=== PATIENT | female | born 1980 | race Caucasian/White ===

== ENCOUNTER 2017-08-16 22:21 | Emergency (ER) | payer MEDICAID ==
[~2017-08-16] VITALS: Ht 162.6 cm; Wt 89.5 kg
[2017-08-16 22:27] VITALS: BP 132/82
== END 2017-08-17 00:07 | disposition home or self-care (01) ==
LOC: ED 08-17 00:01
DX: J06.9 Acute upper respiratory infection, unspecified (principal); B34.9 Viral infection, unspecified
CPT/HCPCS: 99281

== ENCOUNTER 2018-08-23 09:31 | Emergency (ER) | payer MEDICAID, OTHER ==
[~2018-08-23] VITALS: Ht 165.1 cm; Wt 103.4 kg
--- NOTE | 2018-08-23 09:56 | NUR ---
URINE COLLECTED/SENT TO LAB. PT REPORTS OF FLU SX, DX WITH TYPE A FLU FIVE DAYS AGO. PT INTO GOWN,WARM BLANKET PROVIDED, CALL LIGHT WITHIN REACH.
[2018-08-23 10:12] LABS: MICROSCOPIC AUTO
[2018-08-23 10:26] LABS: CULTURE INDICATED? YES
[2018-08-23] MEDS ORDERED: KETOROLAC 30 MG/1 ML IM ONE (10:30)
[2018-08-23 10:42] LABS: RAPID INFLUENZA A Negative (Negative); RAPID INFLUENZA B Negative (Negative)
--- NOTE | 2018-08-23 11:30 | NUR ---
PT UPDATED ON LABS, POC. AWAITING MD TO SEE.
[2018-08-23 12:03] VITALS: BP 124/61
== END 2018-08-23 12:06 | disposition home or self-care (01) ==
LOC: ED 10:29
DX: B34.9 Viral infection, unspecified (principal); R10.9 Unspecified abdominal pain; E66.01 Morbid (severe) obesity due to excess calories; Z68.37 Body mass index [BMI] 37.0-37.9, adult; Z90.89 Acquired absence of other organs; Z88.0 Allergy status to penicillin
CPT/HCPCS: 36415; 71046; 81001; 84703; 87081; 87086; 87400; 87880; 99284

== ENCOUNTER 2019-06-28 20:48 | Emergency (ER) | payer MEDICAID ==
[~2019-06-28] VITALS: Ht 165.1 cm; Wt 104.3 kg
[2019-06-28] MEDS ORDERED: ONDANSETRON 2MG/ML, 2ML ONE (21:18)
[2019-06-28 21:21] LABS: BASOPHILS # (AUTO) 0.03 x10^3/uL (0-0.1); BASOPHILS % (AUTO) 0 % (0-1); EOSINOPHILS # (AUTO) 0.25 x10^3/uL (0-0.4); EOSINOPHILS % (AUTO) 2 % (1-7); LYMPHOCYTES # (AUTO) 2.53 x10^3/uL (1-3.4); LYMPHOCYTES % (AUTO) 23 % (22-44); MD NO; MEAN CORPUSCULAR HEMOGLOBIN 30.5 pg (27.0-34.8); MEAN CORPUSCULAR HGB CONC 32.7 g/dL (32.4-35.8); MEAN CORPUSCULAR VOLUME 93.3 fL (80-100); MEAN PLATELET VOLUME 8.4 fL (7.4-10.4); MONOCYTES # (AUTO) 0.69 x10^3/uL (0.2-0.8); MONOCYTES % (AUTO) 6 % (2-9); NEUTROPHILS # (AUTO) 7.51 x10^3/uL (1.8-6.8); NEUTROPHILS % (AUTO) 68 % (42-75); PLATELET COUNT 313 x10^3/uL (130-400); RED CELL DISTRIBUTION WIDTH 13.3 % (9.6-15.2)
[2019-06-28] MEDS ORDERED: SODIUM CHLORIDE FLUSH 10ML SYR IVF ONE (21:30)
[2019-06-28] MEDS ORDERED: SODIUM CHLORIDE 0.9% 1,000ML IVBOLUS ONE (21:30)
[2019-06-28] MEDS ORDERED: ONDANSETRON 2MG/ML, 2ML IVPush ONE (21:30)
[2019-06-28 21:34] LABS: ALANINE AMINOTRANSFERASE 23 U/L (12-78); ALBUMIN 2.8 g/dL (3.4-5.0); ANION GAP 7 mmol/L (5-15); CALCIUM 8.6 mg/dL (8.5-10.1); CHLORIDE 109 mmol/L (98-107); CREATININE 0.68 mg/dL (0.55-1.02)
[2019-06-28 21:36] LABS: ALKALINE PHOSPHATASE 72 U/L (45-117); BILIRUBIN,TOTAL 0.1 mg/dL (0.2-1.0); TOTAL PROTEIN 6.7 g/dL (6.4-8.2)
[2019-06-28 21:44] LABS: MICROSCOPIC AUTO
[2019-06-28 21:53] LABS: CULTURE INDICATED? YES
[2019-06-28 22:49] VITALS: BP 134/74
== END 2019-06-28 22:52 | disposition home or self-care (01) ==
LOC: ED 22:41
DX: O21.0 Mild hyperemesis gravidarum (principal); O21.8 Other vomiting complicating pregnancy; Z3A.17 17 weeks gestation of pregnancy; Z90.89 Acquired absence of other organs; Z88.0 Allergy status to penicillin
CPT/HCPCS: 36415; 80053; 81001; 83690; 85025; 87086; 96361; 96374; 99283; J2405; J7030

== ENCOUNTER 2021-04-19 03:02 | Emergency (ER) | payer MEDICAID ==
[~2021-04-19] VITALS: Ht 165.1 cm; Wt 93.3 kg
[2021-04-19 03:04] VITALS: BP 142/78
[2021-04-19] MEDS ORDERED: FLUORESCEIN OPHTHALMIC 1 MG STRIP EACHEYE ONE (04:00)
[2021-04-19] MEDS ORDERED: PROPARACAINE OPHTH 0.5%, 15ML EACHEYE ONE (04:00)
[2021-04-19] MEDS ORDERED: FLUORESCEIN OPHTHALMIC 1 MG STRIP ONE (04:44)
[2021-04-19] MEDS ORDERED: PROPARACAINE OPHTH 0.5%, 15ML ONE (04:45)
--- NOTE | 2021-04-19 04:47 | NUR ---
NIL X 1
--- NOTE | 2021-04-19 05:08 | NUR ---
NIL X2
--- NOTE | 2021-04-19 05:54 | NUR ---
NIL X 3
== END 2021-04-19 05:56 | disposition left against medical advice (07) ==
LOC: ED 03:07
DX: H57.89 Other specified disorders of eye and adnexa (principal); Z53.21 Procedure and treatment not carried out due to patient leaving prior to being seen by health care provider
CPT/HCPCS: 99283